=== PATIENT | male | born 1955 | race Caucasian/White ===

== ENCOUNTER 2018-01-04 07:18 | Day surgery (SDC) | payer BC ==
[2017-12-28 12:05] VITALS: BMI 34.4
[~2018-01-04 07:18] MED LIST: LACTATED RINGERS 1,000 ML IV SCH; LIDOCAINE 1% 20 ML VIAL (10MG/ML) FOR IV START INTRADERMA PRN; MIDAZOLAM 2 MG/2 ML VIAL IV PRN
[2018-01-04] MEDS: PHENYLEPHRINE 10% OPHTH DROPS 5 ML BTL OP ONE ×3 (07:50→07:56)
[2018-01-04] MEDS: CYCLOPENTOLATE 1% OPHTH SOLN 2 ML BTL OP ONE ×3 (07:59→08:05)
[2018-01-04 08:08] VITALS: RESP 16; TEMP 98.1
[2018-01-04] MEDS: FLURBIPROFEN 0.03% OPHTH DROPS 2.5 ML BTL OP ONE ×3 (08:08→08:14)
[2018-01-04 08:10] LABS: Glucose,Whole Blood 165 mg/dL (75-99)
[2018-01-04] MEDS ORDERED: PROPOFOL 10 MG/ML 20 ML VIAL IV ONE (08:41)
[2018-01-04] MEDS ORDERED: EPINEPHrine (PF) 0.5 ML in BALANCED SALT IRRIG SOLN COMB2 500 ML IRRIGATION ONE (08:50)
[2018-01-04] MEDS ORDERED: BALANCED SALT IRRIG SOLN COMB2 15 ML IRRIG.SOLN IRRIGATION ONE (08:51)
[2018-01-04] MEDS ORDERED: HYALURONATE SODIUM INTRAOCULAR 1 EACH SYRINGE (10MG/ML) INTRAOCULA ONE (08:51)
--- NOTE | 2018-01-04 09:03 | P.OP ---
Date of Procedure: 01/04/18 Procedure(s) Performed: PREOPERATIVE DIAGNOSIS: Cataract, left eye. POSTOPERATIVE DIAGNOSIS: Cataract, left eye. OPERATION: Phacoemulsification cataract, left eye. DESCRIPTION OF PROCEDURE: The patient was taken to the preoperative holding area. Intravenous Propofol was given so as to bring about adequate sedation. The following mixture was given for local anesthesia: 5 mL of 2% lidocaine, 5 mL of 0.75% Marcaine, and 1 mL of Wydase. Approximately 4 mL was injected in the retrobulbar space of the surgical eye. Additional 1 mL was then directed to the temporal area of the surgical eye. This was performed to allow adequate neurological block of the facial muscles. The patient was revived and then taken into the operative room. The patient was prepped and draped in the usual sterile manner for the operative eye. A lid speculum was put into position. The conjunctiva was resected back from the limbus in the 12 o'clock position. Bleeding was controlled with electrocautery. A #69 blade was then used and a half-thickness scleral incision approximately 1-mm posterior to the limbus was made on bare sclera. This was shelved in the clear cornea using a crescent knife. Next a 15-degree blade was used to make a stab incision at the 3 o' clock position at the corneolimbal interface. Keratome blade was then used and the superior wound was extended into the anterior chamber. Viscoelastic was injected into the anterior chamber and to maintain its form. Next, a cystotome was used and a continuous anterior capsulotomy was made without difficulty. Hydrodissection using a blunt cannula and BSS was performed. Phaco probe was then employed and a groove extending from 12 to 6 o'clock in the lens was created. A Chris wand was used through the stab incision so as to perform a divide and conquer technique. Next an irrigation aspiration probe was utilized and any residual cortex was removed from the eye. Again, viscoelastic was injected into the anterior chamber. An Kasi posterior chamber lens implant was placed in the cartridge and injected into the anterior chamber without difficulty. The SinDailyWorthey hook was utilized to spin the lens into position and this was again performed without any difficulty. The irrigation and aspiration probe was again employed and any residual viscoelastic was removed from the eye. Then BSS was injected into the limbal stab incision and the anterior chamber re-inflated. The conjunctiva was reapproximated using electrocautery. One drop of 0.25% Timoptic was placed over the corneal along with TobraDex ophthalmic ointment. Two sterile patches and a Freire eye shield were taped into position. The patient was transported to the recovery room in stable condition. Pathology: none sent Condition: stable Disposition: same day
[2018-01-04 09:32] VITALS: BP 146/87; PULSE 62
[2018-01-04] MEDS ORDERED: TIMOLOL 0.5% OPHTH DROPS 5 ML BTL OP ONE (23:00)
[2018-01-04] MEDS ORDERED: BUPIVACAINE (PF) 0.75% 5 ML, HYALURONIDASE, HUMAN RECOMB 150 UNIT, LIDOCAINE 2% (PF) 10... MISCELLANE ONE ×3 (23:00)
[2018-01-04] MEDS ORDERED: GENTAMICIN/PREDNISOL AC OPHTH OINT 3.5GM OPHTHALMIC ONE (23:00)
== END 2018-01-04 09:37 | disposition home or self-care (01) ==
LOC: OR 07:18
PROVIDERS: ATTEND Ophthalmology
DX: H25.042 Posterior subcapsular polar age-related cataract, left eye (principal); E11.9 Type 2 diabetes mellitus without complications; I10 Essential (primary) hypertension; E78.5 Hyperlipidemia, unspecified; I95.1 Orthostatic hypotension; K21.9 Gastro-esophageal reflux disease without esophagitis; Z79.84 Long term (current) use of oral hypoglycemic drugs; Z79.82 Long term (current) use of aspirin; Z79.899 Other long term (current) drug therapy; Z87.891 Personal history of nicotine dependence; Z98.1 Arthrodesis status
CPT/HCPCS: 66984; V2632; J3470; J2001; J0171; J2704

== ENCOUNTER 2021-06-02 11:25 | Emergency (ER) | payer BC ==
[2021-06-02 11:58] VITALS: TEMP 98.8
[2021-06-02] MEDS ORDERED: SODIUM CHLORIDE 0.9% 1,000 ML IV STA (12:55)
--- NOTE | 2021-06-02 12:58 | ED ---
General Adult HPI - General Chief complaint: Syncope Stated complaint: syncope Time Seen by Provider: 06/02/21 12:45 Source: patient, family, RN notes reviewed Mode of arrival: ambulatory Limitations: no limitations - History of Present Illness Initial comments: Patient is a pleasant 65-year-old male presenting to the emergency department on a syncopal episode. Episode occurred yesterday. Patient was showering when he felt short of breath. Patient turned off the water to get out however has helped. Patient believes he did strike his head. Patient has mild headache since the incident. Patient also has some mild associated nausea. No chest pa in. No weakness or confusion. No history of similar symptoms previously. No dyspnea since just prior to the syncopal episode. - Related Data Home Medications Medication Instructions Recorded Confirmed Aspirin [Adult Low Dose Aspirin EC] 81 mg PO DAILY 12/28/17 06/02/21 Omeprazole [PriLOSEC] 20 mg PO DAILY 12/28/17 06/02/21 metFORMIN HCL [Glucophage] 1,000 mg PO BID 12/28/17 06/02/21 Atorvastatin Calcium [Lipitor] 40 mg PO DAILY 06/02/21 06/02/21 Dulaglutide [Trulicity] 1.5 mg SQ MO 06/02/21 06/02/21 Sildenafil [Revatio] 60 - 100 mg PO DAILY PRN 06/02/21 06/02/21 lisinopriL 10 mg PO HS 06/02/21 06/02/21 Previous Rx's Medication Instructions Recorded Azithromycin [Zithromax Z-pack (6 250 mg PO DIRECTED #6 tab 06/02/21 tabs)] Allergies Allergy/AdvReac Type Severity Reaction Status Date / Time No Known Allergies Allergy Verified 06/02/21 14:36 Review of Systems ROS Statement: Those systems with pertinent positive or pertinent negative responses have been documented in the HPI. ROS Other: All systems not noted in ROS Statement are negative. Constitutional: Denies: fever Eyes: Denies: eye pain ENT: Denies: ear pain Respiratory: Reports: as per HPI Cardiovascular: Denies: chest pain Endocrine: Denies: fatigue Gastrointestinal: Reports: nausea. Denies: abdominal pain Genitourinary: Denies: dysuria Musculoskeletal: Denies: back pain Skin: Denies: rash Neurological: Reports: as per HPI, headache. Denies: weakness, confusion Past Medical History Past Medical History: Diabetes Mellitus, GERD/Reflux, Hyperlipidemia, Hypertension Additional Past Medical History / Comment(s): dizziness when getting up to quick, History of Any Multi-Drug Resistant Organisms: None Reported Past Surgical History: Back Surgery, Ear Surgery, Heart Catheterization Additional Past Surgical History / Comment(s): reconstruction left ear, cervical fusion with titanium plate, , Past Anesthesia/Blood Transfusion Reactions: No Reported Reaction Past Psychological History: No Psychological Hx Reported Smoking Status: Never smoker Past Alcohol Use History: Rare Past Drug Use History: None Reported - Past Family History Father Family Medical History: Cancer General Exam Limitations: no limitations General appearance: alert, in no apparent distress Head exam: Present: other (Minimal contusion left frontal) Eye exam: Present: normal appearance, PERRL, EOMI. Absent: nystagmus ENT exam: Present: normal oropharynx Neck exam: Present: normal inspection. Absent: tenderness Respiratory exam: Present: normal lung sounds bilaterally Cardiovascular Exam: Present: regular rate, normal rhythm Expanded Peripheral pulses: 2+: Radial (R), Radial (L), Dorsalis Pedis (R), Dorsalis Pedis (L) GI/Abdominal exam: Present: soft. Absent: tenderness Extremities exam: Present: normal inspection, full ROM. Absent: tenderness Neurological exam: Present: alert, oriented X3, CN II-XII intact. Absent: motor sensory deficit Expanded Neurological exam: Present: protecting the airway Speech: Present: fluid speech Cranial nerves: EOM's Intact: Normal Motor strength exam: RUE: 5, LUE: 5, RLE: 5, LLE: 5 Eye Response: (4) open spontaneously Motor Response: (6) obeys commands Verbal Response: (5) oriented Psychiatric exam: Present: normal affect, normal mood Skin exam: Present: normal color Course Vital Signs 06/02/21 06/02/21 06/02/21 11:55 11:58 13:58 Temperature 98.8 F Pulse Rate 76 95 86 Respiratory 19 18 18 Rate Blood Pressure 121/73 131/95 125/75 O2 Sat by Pulse 94 L 96 95 Oximetry 06/02/21 15:58 Temperature Pulse Rate 80 Respiratory 18 Rate Blood Pressure 132/81 O2 Sat by Pulse 96 Oximetry EKG Findings - EKG Comments: EKG Findings:: Normal sinus rhythm with a rate of 77. FL 174. QRS 118. QT 396 . QTc 440. Left axis. Left anterior fascicular block. LVH criteria. No acute ST change. Medical Decision Making - Medical Decision Making Patient reevaluated and updated. Patient offered admission however refuses and would like to go home. Patient offered COVID-19 testing however also refuses. Patient will be covered with antibiotics. Case was earlier discussed with Dr. Webb who was comfortable with discharge of patient felt well however otherwise was agreeable with admission. Discussion was had with patient regarding need for care with driving and operating machinery and further restrictions to be discussed with primary care physician. - Lab Data Result diagrams: 06/02/21 14:13 06/02/21 14:13 Lab Results 06/02/21 06/02/21 06/02/21 Range/Units 13:57 14:13 14:13 WBC 10.0 (3.8-10.6) k/uL RBC 4.63 (4.30-5.90) m/uL Hgb 14.4 (13.0-17.5) gm/dL Hct 42.2 (39.0-53.0) % MCV 91.1 (80.0-100.0) fL MCH 31.2 (25.0-35.0) pg MCHC 34.2 (31.0-37.0) g/dL RDW 13.6 (11.5-15.5) % Plt Count 213 (150-450) k/uL MPV 8.1 Neutrophils % 83 % Lymphocytes % 8 % Monocytes % 6 % Eosinophils % 2 % Basophils % 0 % Neutrophils # 8.3 H (1.3-7.7) k/uL Lymphocytes # 0.8 L (1.0-4.8) k/uL Monocytes # 0.6 (0-1.0) k/uL Eosinophils # 0.2 (0-0.7) k/uL Basophils # 0.0 (0-0.2) k/uL PT 10.1 (9.0-12.0) sec INR 0.9 (<1.2) APTT 23.5 (22.0-30.0) sec D-Dimer 0.63 H (<0.60) mg/L FEU Sodium (137-145) mmol/L Potassium (3.5-5.1) mmol/L Chloride (98-107) mmol/L Carbon Dioxide (22-30) mmol/L Anion Gap mmol/L BUN (9-20) mg/dL Creatinine (0.66-1.25) mg/dL Est GFR (CKD-EPI)AfAm (>60 ml/min/1.73 sqM) Est GFR (CKD-EPI)NonAf (>60 ml/min/1.73 sqM) Glucose (74-99) mg/dL Calcium (8.4-10.2) mg/dL Magnesium (1.6-2.3) mg/dL Total Bilirubin (0.2-1.3) mg/dL AST (17-59) U/L ALT (4-49) U/L Alkaline Phosphatase (38-126) U/L Troponin I (0.000-0.034) ng/mL Total Protein (6.3-8.2) g/dL Albumin (3.5-5.0) g/dL Urine Color Yellow Urine Appearance Cloudy (Clear) Urine pH 5.5 (5.0-8.0) Ur Specific [place] 1.025 (1.001-1.035) Urine Protein 2+ H (Negative) Urine Glucose (UA) Negative (Negative) Urine Ketones Trace H (Negative) Urine Blood Large H (Negative) Urine Nitrite Positive (Negative) Urine Bilirubin Negative (Negative) Urine Urobilinogen 2.0 (<2.0) mg/dL Ur Leukocyte Esterase Large H (Negative) Urine RBC 12 H (0-5) /hpf Urine WBC 86 H (0-5) /hpf Urine WBC Clumps Occasional H (None) /hpf Urine Bacteria Many H (None) /hpf Hyaline Casts 34 H (0-2) /lpf Urine Mucus Many H (None) /hpf 06/02/21 06/02/21 Range/Units 14:13 14:13 WBC (3.8-10.6) k/uL RBC (4.30-5.90) m/uL Hgb (13.0-17.5) gm/dL Hct (39.0-53.0) % MCV (80.0-100.0) fL MCH (25.0-35.0) pg MCHC (31.0-37.0) g/dL RDW (11.5-15.5) % Plt Count (150-450) k/uL MPV Neutrophils % % Lymphocytes % % Monocytes % % Eosinophils % % Basophils % % Neutrophils # (1.3-7.7) k/uL Lymphocytes # (1.0-4.8) k/uL Monocytes # (0-1.0) k/uL Eosinophils # (0-0.7) k/uL Basophils # (0-0.2) k/uL PT (9.0-12.0) sec INR (<1.2) APTT (22.0-30.0) sec D-Dimer (<0.60) mg/L FEU Sodium 138 (137-145) mmol/L Potassium 3.7 (3.5-5.1) mmol/L Chloride 99 (98-107) mmol/L Carbon Dioxide 25 (22-30) mmol/L Anion Gap 14 mmol/L BUN 26 H (9-20) mg/dL Creatinine 1.07 (0.66-1.25) mg/dL Est GFR (CKD-EPI)AfAm 85 (>60 ml/min/1.73 sqM) Est GFR (CKD-EPI)NonAf 74 (>60 ml/min/1.73 sqM) Glucose 128 H (74-99) mg/dL Calcium 9.2 (8.4-10.2) mg/dL Magnesium 1.7 (1.6-2.3) mg/dL Total Bilirubin 1.0 (0.2-1.3) mg/dL AST 38 (17-59) U/L ALT 26 (4-49) U/L Alkaline Phosphatase 101 (38-126) U/L Troponin I <0.012 (0.000-0.034) ng/mL Total Protein 7.4 (6.3-8.2) g/dL Albumin 4.0 (3.5-5.0) g/dL Urine Color Urine Appearance (Clear) Urine pH (5.0-8.0) Ur Specific [place] (1.001-1.035) Urine Protein (Negative) Urine Glucose (UA) (Negative) Urine Ketones (Negative) Urine Blood (Negative) Urine Nitrite (Negative) Urine Bilirubin (Negative) Urine Urobilinogen (<2.0) mg/dL Ur Leukocyte Esterase (Negative) Urine RBC (0-5) /hpf Urine WBC (0-5) /hpf Urine WBC Clumps (None) /hpf Urine Bacteria (None) /hpf Hyaline Casts (0-2) /lpf Urine Mucus (None) /hpf - Radiology Data Radiology results: report reviewed (Computed tomography scan the brain shows atrophy. Right maxillary sinusitis. CT chest negative for pulmonary embolism. Right lower lobe infiltrate.), image reviewed (Chest x-ray concerning for atelectasis favored over infiltrate.) Disposition Clinical Impression: Pneumonia, Syncope Disposition: HOME SELF-CARE Condition: Stable Instructions (If sedation given, give patient instructions): Bacterial Pneumonia (ED), Syncope (ED) Additional Instructions: Prescription has been sent to pharmacy. Please follow-up with primary care physician in the next day or 2 for recheck. Return for difficulty breathing, weakness, passing out, chest pain, worsening symptoms or other concerns. Prescriptions: Azithromycin [Zithromax Z-pack (6 tabs)] 250 mg PO DIRECTED #6 tab Is patient prescribed a controlled substance at d/c from ED?: No Referrals: Carlos Bhat DO [Primary Care Provider] - 1-2 days Time of Disposition: 17:16
--- NOTE | 2021-06-02 13:34 | CT ---
EXAMINATION TYPE: CT brain wo con DATE OF EXAM: 06/02/2021 HISTORY: Syncope CT DLP: 1074.4 mGycm. Automated Exposure Control for Dose Reduction was Utilized. TECHNIQUE: CT scan of the head is performed without contrast. COMPARISON: None. FINDINGS: There is no acute intracranial hemorrhage or midline shift identified. There is mild diff use ventricular and sulcal prominence consistent with diffuse age-related cerebral atrophy. There is mild to moderate low-attenuation in the deep and periventricular white matter consistent with chroni c small vessel ischemic change. Air-fluid level in the right maxillary sinus. Remainder visualized pa ranasal sinuses are clear. Left mastoid surgical change noted. Mild to moderate vascular calcificatio n distal internal carotid arteries bilaterally. Nasal septum deviated to right of midline. IMPRESSION: No acute intracranial hemorrhage or midline shift. There is mild diffuse age-related ce rebral atrophy and mild to moderate chronic small vessel ischemic change noted. Left mastoid surgical change noted. Right maxillary acute sinusitis noted.
--- NOTE | 2021-06-02 13:35 | XR ---
EXAMINATION TYPE: XR chest 2V DATE OF EXAM: 06/02/2021 COMPARISON: NONE TECHNIQUE: PA and lateral views submitted. HISTORY: Syncope FINDINGS: The lungs are clear and there is no pneumothorax, pleural effusion, or focal pneumonia. Heart size normal. Hypertrophic and degenerative change spine. Hyperinflation suggests COPD. Arthropathy of the shoulders. Postsurgical change involving the cervical spine. Linear changes at the lung base. IMPRESSION: 1. PD basilar atelectasis favored over infiltrate correlate clinically..
[2021-06-02 14:21] LABS: Appearance,Urine Cloudy (Clear); Bacteria,Urine Many /hpf; Bilirubin,Urine Negative (Negative); Blood,Urine Large (Negative); Color,Urine Yellow; Glucose,Urine (UA) Negative (Negative); Hyaline Casts,Urine 34 /lpf (0-2); Ketones,Urine Trace (Negative); Leukocyte Esterase,Urine Large (Negative); Mucus,Urine Many /hpf; Nitrite,Urine Positive (Negative); PH, Urine 5.5 (5.0-8.0); Protein,Urine 2+ (Negative); RBC,Urine 12 /hpf (0-5); Specific Gravity,Urine 1.025 (1.001-1.035); WBC,Urine 86 /hpf (0-5)
[2021-06-02 14:31] LABS: Basophils % (A) 0 %; Eosinophils # (A) 0.2 k/uL (0-0.7); Eosinophils % (A) 2 %; HCT 42.2 % (39.0-53.0); HGB 14.4 gm/dL (13.0-17.5); Lymphocytes # (A) 0.8 k/uL (1.0-4.8); Lymphocytes % (A) 8 %; MCH 31.2 pg (25.0-35.0); MCHC 34.2 g/dL (31.0-37.0); MCV 91.1 fL (80.0-100.0); Mean Platelet Volume 8.1; Monocytes # (A) 0.6 k/uL (0-1.0); Monocytes % (A) 6 %; Neutrophils # (A) 8.3 k/uL (1.3-7.7); Neutrophils % (A) 83 %; Platelet Count 213 k/uL (150-450); RBC 4.63 m/uL (4.30-5.90); RDW 13.6 % (11.5-15.5)
[2021-06-02 14:46] LABS: INR 0.9 (<1.2); Partial Thromboplastin Time 23.5 sec (22.0-30.0); Prothrombin Time 10.1 sec (9.0-12.0)
[2021-06-02 14:51] LABS: Calcium 9.2 mg/dL (8.4-10.2); Magnesium 1.7 mg/dL (1.6-2.3); Potassium 3.7 mmol/L (3.5-5.1); Total Protein 7.4 g/dL (6.3-8.2)
[2021-06-02 16:52] VITALS: PULSE 80; RESP 18
--- NOTE | 2021-06-02 16:57 | CT ---
EXAMINATION TYPE: CT angio chest DATE OF EXAM: 06/02/2021 COMPARISON: None HISTORY: Elevated d-dimer and syncope. CT DLP: 429.4 mGycm Automated exposure control for dose reduction was used. CONTRAST: Performed with IV Contrast, patient injected with 71ml mL of Isovue 370. There is some airspace consolidation in the right lower lobe posteriorly. The other lung caceres are c lear. There is no pleural effusion. There is no pericardial effusion. Heart size is normal. Ascending aorta measures 3.4 cm. There is no aneurysm or dissection. There is normal contrast opacification of the pulmonary arteries. There are no filling defects. There is no mediastinal adenopathy. There are no hilar masses. There is some spurring in the thoracic spin e. There is no compression fracture. Sternum is intact. IMPRESSION: Right lower lobe pneumonia. No evidence of pulmonary embolism.
[2021-06-02] MEDS ORDERED: cefTRIAXone IN SWFI 1,000 MG/10 ML SYRINGE IVP STA (17:17)
[2021-06-02] MEDS ORDERED: AZITHROMYCIN 500 MG TAB PO STA (17:17)
[2021-06-02 17:47] VITALS: BP 158/96
== END 2021-06-02 17:47 | disposition home or self-care (01) ==
LOC: EC 11:25
DX: J18.9 Pneumonia, unspecified organism (principal); R55 Syncope and collapse; R51.9 Headache, unspecified; I10 Essential (primary) hypertension; E11.9 Type 2 diabetes mellitus without complications; E78.5 Hyperlipidemia, unspecified; K21.9 Gastro-esophageal reflux disease without esophagitis; Z79.84 Long term (current) use of oral hypoglycemic drugs; Z79.899 Other long term (current) drug therapy
CPT/HCPCS: 36415; 93005; 85379; 80053; 83735; 84484; 85025; 85610; 85730; 81001; 87086; 71046; 70450; 71275; 99284; 96374; 96361; J0696; Q9967

== ENCOUNTER → 2022-06-10 | Outpatient (CLI) | payer OTHER ==
--- NOTE | 2022-06-10 21:13 | MR ---
EXAMINATION TYPE: MR lumbar spine wo con DATE OF EXAM: 06/10/2022 8:23 PM COMPARISON: None. CLINICAL INDICATION:Male, 66 years old with history of S33.5XXA SPRAIN OF LIGAMENTS OF LUMBAR SPINE; pain radiates down right leg. TECHNIQUE: Multi planar, multi sequence imaging was performed utilizing: T1-weighted, T2-weighted, a nd turbo inversion recovery imaging of the lumbar spine. IV Contrast: None FINDINGS: Alignment: The lumbar vertebral bodies have preserved heights and alignment. Cord: The conus medullaris and the distal spinal cord appear unremarkable with regards to their signa l intensity and morphology. Bones/Discs: Multilevel disc degeneration changes with osteophyte formation most pronounced at L1-L2 adjoining endplates disc desiccation is mild throughout the spine. Probable L4 vertebral body hemangi samuel. L1-L2: No significant disc pathology. Spinal canal is patent. Facet joint arthropathy with mild to mo derate neural foraminal stenosis. L2-L3: No significant disc pathology. Spinal canal is patent. Facet joint arthropathy with mild to mo derate bilateral neural foraminal stenosis L3-L4: No significant disc pathology. Spinal canal is patent. Facet joint arthropathy with moderate b ilateral neural foraminal stenosis L4-L5: Disc bulging and facet joint arthropathy with moderate left and mild right neural foraminal st enosis. The spinal canal seen. L5-S1: Disc bulging without significant spinal canal stenosis. Facet joint arthropathy with mild to m oderate bilateral neural foraminal stenosis. Other findings: Atherosclerosis of the arterial vasculature. IMPRESSION: 1. L3-L4 moderate bilateral neural foraminal stenosis secondary to facet joint arthropathy. 2. No evidence of significant spinal canal stenosis.
== END | disposition home or self-care (01) ==
LOC: RADMRIMAIN 19:01
PROVIDERS: ATTEND Family Medicine
DX: S33.5XXA Sprain of ligaments of lumbar spine, initial encounter (principal); X58.XXXA Exposure to other specified factors, initial encounter
CPT/HCPCS: 72148

== ENCOUNTER → 2024-02-03 | Outpatient (CLI) | payer BC ==
--- NOTE | 2024-02-03 11:57 | MR ---
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 COMPARISON: 06/10/2022 TECHNIQUE: Multi planar, multi sequence imaging was performed utilizing: T1-weighted, T2-weighted, a nd turbo inversion recovery imaging of the lumbar spine. IV Contrast: cc . (None if empty) FINDINGS: Alignment: The lumbar vertebral bodies have preserved heights and alignment. Cord: The conus medullaris and the distal spinal cord appear unremarkable with regards to their signa l intensity and morphology. Bones/Discs: Mild degeneration changes throughout the spine with osteophyte formation and facet joint arthropathy. Multilevel disc desiccation is present. T12-L1: No evidence of significant spinal canal stenosis or neural foraminal stenosis. L1-L2: No evidence of significant spinal canal stenosis or neural foraminal stenosis. L2-L3: Disc bulge and facet joint arthropathy result in mild spinal canal and moderate bilateral neur al foraminal stenosis. L3-L4: Disc bulge and facet joint arthropathy result in mild spinal canal and moderate bilateral neur al foraminal stenosis. L4-L5: Disc bulge and facet joint arthropathy result in mild spinal canal and moderate bilateral neur al foraminal stenosis. L5-S1: The disc has a rounded posterior morphology without significant spinal canal stenosis. Facet j oint arthropathy with moderate to severe right and moderate left. Facet joint abuts the exiting nerve series 301 image 12. Neural foraminal stenosis. No significant spinal canal or neural foraminal stenosis in the remainder of the visualized levels. Other findings: None. IMPRESSION: 1. No definitive evidence of disc herniation or significant spinal canal stenosis. 2. Mild to moderate disc degeneration with associated osteoarthritic changes. No foraminal stenosis worse on the right L5-S1 with moderate to severe.
== END | disposition home or self-care (01) ==
LOC: RADMRIMAIN 09:06
PROVIDERS: ATTEND Family Medicine
DX: M47.26 Other spondylosis with radiculopathy, lumbar region (principal); M51.16 Intervertebral disc disorders with radiculopathy, lumbar region; M16.11 Unilateral primary osteoarthritis, right hip
CPT/HCPCS: 72148

== ENCOUNTER → 2024-03-29 | Outpatient (CLI) | payer BC ==
[2024-03-29 09:26] VITALS: BP 132/74; PULSE 65; RESP 16; TEMP 97.6
--- NOTE | 2024-03-29 13:57 | P.PAINPG ---
PQRS Measure Charge Sheet Comment: HISTORY OF PRESENT ILLNESS: A 68 yr old male w at side as a referral from Dr Davenport presents today w severe and chronic LBP> 3 mo secondary to DDD, spondylosis and facet arthropathy without myelopathy for evaluation. Pt states pain level is provoked at 9 /10 in intensity, intermittent, localized in the lower lumbar spine, predominantly axial, sharp in character w occasional shooting pain towards the R buttock and RLE. Pain is provoked by bending, lifting. Pain is alleviated by PT x 6 wks which ended in 2018, physician guided home exercises 4 times weekly since 2019, medications (ASA, Tramadol, Neurontin), heat, repositioning and rest . Oswestry axial pain score at 26. PMH: OA, IDDM II, GERD, Hyperlipidemia, HTN PSH: L Cataract Extraction (2018), Cervical Fusion w Titanium Plate, Ear Surgery, Cardiac Catheterization SH: Never smoker, Rare ETOH use, No illicit drug use FH: Fa- CA All: See list Meds: See list REVIEW OF ORGAN SYSTEMS: CONSTITUTIONAL: No fevers or chills. No recent weight loss. NEUROLOGICAL: + numbness and tingling along the distal extremities. No seizure disorders or headaches. MUSCULOSKELETAL: + pain PSYCHIATRIC: Denies current depression or suicidal thoughts. Physical Examinations : Constitutional : Cooperative , not in acute distress . Neurologic : Cranial nerve II to XII intact. No focal neurological deficits. Psychiatric : alert & oriented x 3. Matching mood & appropriate affect. Judgment & insight intact. Musculoskeletal : Cervical Spine Motor strength in the deltoid and biceps: Normal right side. Normal Left side Motor strength biceps and the wrist extensors: Normal right side . Normal left side Motor strength in the triceps muscle: Normal right side. Normal left side Deep tendon reflexes: Normal at the biceps. Normal at Brachioradialis. Normal at triceps Vertebral body tenderness to deep palpation over Cervical facet loading test: positive bilaterally Spurling test: positive bilaterally Neck distraction test: positive bilaterally Curtis sign: positive bilaterally Lumbar spine Motor strength lower extremities ,thigh and legs 5/5 Right side , 5/5 Left side Deep tendon reflexes : Normal Knee Jerk. Normal Ankle Jerk Vertebral body tenderness over L5 Baldwin Test positive R L5-S1 Lumbar facet Loading Test: positive Ri ght / positive Left Range of motion of the lumbar spine Flexion 30 degrees, extension 10 degrees Straight Leg Raise test: Left/ Right positive at degrees Hiram test: positive right / positive left. Severe tenderness over the Sacroiliac joint on the Right / Left sides Gaenslen test: positive bilaterally Seated flexion test: positive bilaterally. Sacral spine : Severe tenderness over the Sacroiliac joint: right side / left side Range of motion: Flexion of the lumbar spine <60 degrees Range of motion: Extension of the lumbar spine <20 degrees Gaenslen's Test positive Hiram test: positive right side / left side Thigh Thrust Test Sacral Thrust Test Imaging: MRI non contrast of the lumbar spine from reviewed Assessment/ Plan : L3-L5 mild spinal stenosis, Lumbar DDD Recommendation of R TFESI L5-S1 #1. May need a series of injections for optimal pain relief. Risks, benefits of procedure discussed and patient verbalized understanding. Admits to anti- coagulant use or medical history of diabetes. Pr otocol for discontinuation/ continuation of medications vianca procedure discussed. All questions answered. I have spent greater than 30 minutes on patient care today. Dr Mendoza was available by phone for the evaluation of this patient. The time was used to review the medical records including relevant urine studies and Prescription history (MAPs), review of the available imaging, evaluation and examination of the patient, coordination of care with the medical staff and if applicable referring physicians, as well as creation of the medical record - Pain Location Lower Back Pharmacological Interventions: PRN Medication PQRS Narrative: Smoking Status Former smoker Home Medications: Ambulatory Orders Aspirin [Adult Low Dose Aspirin EC] 81 mg PO DAILY 12/28/17 Omeprazole [PriLOSEC] 20 mg PO DAILY 12/28/17 metFORMIN HCL [Glucophage] 1,000 mg PO BID 12/28/17 Atorvastatin Calcium [Lipitor] 40 mg PO DAILY 06/02/21 Azithromycin [Zithromax Z-pack (6 tabs)] 250 mg PO DIRECTED #6 tab 06/02/21 Dulaglutide [Trulicity] 1.5 mg SQ MO 06/02/21 Sildenafil [Revatio] 60 - 100 mg PO DAILY PRN 06/02/21 lisinopriL [Prinivil] 10 mg PO HS 06/02/21 Controlled Substance Measures - Controlled Substance Measures Is patient prescribed a controlled substance at discharge?: Yes When asked, does pt state using other controlled substances?: Yes If prescribed controlled substance>3 days was MAPS reviewed?: Prescribed <3 Days
== END ==
LOC: PNWHC3 09:02
PROVIDERS: ATTEND Specialist
DX: M99.63 Osseous and subluxation stenosis of intervertebral foramina of lumbar region (principal); M46.96 Unspecified inflammatory spondylopathy, lumbar region; M51.17 Intervertebral disc disorders with radiculopathy, lumbosacral region; M48.061 Spinal stenosis, lumbar region without neurogenic claudication; Z87.891 Personal history of nicotine dependence
CPT/HCPCS: 99211

== ENCOUNTER 2024-04-11 12:44 | Day surgery (SDC) | payer BC ==
[~2024-04-11 12:44] MED LIST changes: -LIDOCAINE 1% 20 ML VIAL (10MG/ML) FOR IV START INTRADERMA PRN; -MIDAZOLAM 2 MG/2 ML VIAL IV PRN
[2024-04-11 13:12] VITALS: TEMP 97.3
[2024-04-11 13:24] LABS: Glucose,Whole Blood 147 mg/dL (70-110)
[2024-04-11] MEDS ORDERED: IOPAMIDOL M200 10 ML VIAL ONE (14:05)
[2024-04-11] MEDS ORDERED: DEXAMETHASONE SOD PHOSPHATE 10 MG/ML 1 ML VIAL ONE (14:05)
--- NOTE | 2024-04-11 14:10 | P.PCN ---
Date of Procedure: 04/11/24 Description of Procedure: PREOPERATIVE DIAGNOSIS: Lumbar radiculopathy POSTOPERATIVE DIAGNOSIS: Lumbar radiculopathy PROCEDURE 1. Transforaminal epidural steroid injection under fluoroscopic guidance RIGHT 01/18 2. Lumbar epidurogram IMAGING Fluoroscopy was used, images where saved to the medical record ANESTHESIA: Patient re-evaluated immediately prior to sedation local only EBL: Minimal PROCEDURE DESCRIPTION / TECHNIQUE: The patient was seen and identified in the preoperative area. Risks, benefits, complications, and alternatives were discussed with the patient. The patient agreed to proceed with the procedure and signed the consent, vital signs were stable prior to the procedure. Patient was taken to the OR and time out was completed. The patient was placed in the prone position on procedure table and a pillow was placed under the abdomen to reduce lumbar lordosis. The lumbosacral area was prepped and draped in the usual sterile fashion. Vital signs were closely monitored during the procedure. Conscious sedation was used. Using oblique fluoroscopy, the chin of the "Rm dog" at the pedicle and the skin and deeper tissues just below was localized with 1% lidocaine. Subsequently, a 22-gauge 5-inch spinal needle was advanced under a tunneled view fluoroscopic guidance just underneath the chin of the "Rm dog". Under lateral fluoroscopy, the needle was then advanced to the posterior border interforaminal space. After negative aspiration of CSF and blood and with no paresthesias, 1 mL of Omnipaque-240 contrast dye was injected excellent epidurogram. Subsequently, a solution totalling 2ml of dexamethasone and 1CC of 1% lidocaine was injected after negative aspiration (total of 10mg of dexamethasone was used). The needle was removed intact. COMPLICATIONS: None DISPOSITION: The patient was placed in a supine position and transferred to the recovery area in a stable condition for observation. There was no evidence of lower extremity motor or sensory deficit after the procedure. Patient was discharged from the recovery room after meeting discharge criteria. Home discharge instructions were given to the patient by the staff. The patient was reexamined prior to discharge. Follow up as directed.
--- NOTE | 2024-04-11 14:25 | FL ---
Fluoroscopy History: M54.16 LUMBAR RADICULOPATHY Right transforaminal epidural steroid injection 5 sec fl .[id number] DAP
[2024-04-11 14:37] VITALS: BP 133/77; PULSE 63; RESP 16
== END 2024-04-11 14:50 | disposition home or self-care (01) ==
LOC: ORPAIN 12:44
PROVIDERS: ATTEND Hospitalist
DX: M54.16 Radiculopathy, lumbar region (principal); E11.9 Type 2 diabetes mellitus without complications; Z79.82 Long term (current) use of aspirin
CPT/HCPCS: 64483; J1100; Q9966

== ENCOUNTER → 2024-04-26 | Outpatient (CLI) | payer BC | LOC: PNWHC3 09:52 | DX: M54.16 Radiculopathy, lumbar region | CPT/HCPCS: 99211 ==

== ENCOUNTER 2024-05-11 09:57 | Day surgery (SDC) | payer BC ==
[2024-05-11] MEDS ORDERED: methylPREDNISolone ACETATE 80 MG/ML 1 ML VIAL ONE (12:34)
[2024-05-11] MEDS ORDERED: ROPIVACAINE 5MG/ML 20ML VIAL ONE (12:34)
--- NOTE | 2024-06-20 18:20 | FL ---
EXAMINATION TYPE: FL guided pain mgmt statistic DATE OF EXAM: 05/18/2024 3:35 PM COMPARISON: Pre Operative Images if available both CT/MRI or plain film CLINICAL INDICATION: Male, 68 years old with history of RIGHT GREATER TROCHANTER INJ; TECHNIQUE: FL guided pain mgmt statistic, multiple fluoroscopic images provided for procedure. Total fluoroscopy time: 10 seconds Total submitted images to PACS: 1 DAP: 0.47332 mGym2 Gycm2 uGym2 cGycm2 or equivalent. FINDINGS: IMPRESSION: 1. No evidence for intraoperative complication. 2. Please see the operative/procedural note for further details. [facility], , 06/20/2024 6:17 PM
== END 2024-05-11 13:34 ==
LOC: ORPAIN 09:57
PROVIDERS: ATTEND Pain Medicine Interventional Pain Medicine
DX: M70.61 Trochanteric bursitis, right hip (principal); E11.9 Type 2 diabetes mellitus without complications; I10 Essential (primary) hypertension; Z79.82 Long term (current) use of aspirin; Z79.84 Long term (current) use of oral hypoglycemic drugs; Z79.899 Other long term (current) drug therapy
CPT/HCPCS: 20610

== ENCOUNTER → 2024-07-19 | Outpatient (CLI) | payer BC ==
[2024-07-19 09:10] VITALS: BP 124/82; PULSE 80; RESP 16; TEMP 97.1
--- NOTE | 2024-07-19 14:33 | P.PAINPG ---
PQRS Measure Charge Sheet Comment: HISTORY OF PRESENT ILLNESS: A 68 yr old male w at side presents today w severe and chronic LBP> 3 mo secondary to radiculopathy, spondylosis and facet arthropathy without myelopathy for evaluation s/p R Greater Trochanteric Injection #1. Pt states he experienced >50 % pain relief x 2 mo s/p procedure. Pt states pain level is provoked at 6 /10 in intensity, intermittent, localized in the R lower lumbar spine, predominantly axial, sharp in character w occasional shooting pain towards the R groin and RLE. Pain is provoked by bending, lifting. Pain is alleviated by PT x 6 wks which ended in 2018, physician guided home exercises 4 times weekly since 2019 (lumbar and hips), medications, heat, repositioning and rest . Interventional procedures include Apr [address] Trauma, R TFESI L5-S1 x1, R Greater Trochanteric Injection x1 Medication s include Aleve, ASA REVIEW OF ORGAN SYSTEMS: CONSTITUTIONAL: No fevers or chills. No recent weight loss. NEUROLOGICAL: + numbness and tingling along the distal extremities. No seizure disorders or headaches. MUSCULOSKELETAL: + pain PSYCHIATRIC: Denies current depression or suicidal thoughts. Physical Examinations : Constitutional : Cooperative , not in acute distress . Neurologic : Cranial nerve II to XII intact. No focal neurological deficits. Psychiatric : alert & oriented x 3. Matching mood & appropriate affect. Judgment & insight intact. Musculoskeletal : Cervical Spine Motor strength in the deltoid and biceps: Normal right side. Normal Left side Motor strength biceps and the wrist extensors: Normal right side . Normal left side Motor strength in the triceps muscle: Normal right side. Normal left side Deep tendon reflexes: Normal at the biceps. Normal at Brachioradialis. Normal at triceps Vertebral body tenderness to deep palpation over Cervical facet loading test: positive bilaterally Spurling test: positive bilaterally Neck distraction test: positive bilaterally Curtis sign: positive bilaterally Lumbar spine +R Trendelenburg Motor strength lower extremities ,thigh and legs 5/5 Right side , 5/5 Left side Deep tendon reflexes : Normal Knee Jerk. Normal Ankle Jerk Vertebral body tenderness over L5 Baldwin Test positive R L5-S1 Lumbar facet Loading Test: positive Right / positive Left Range of motion of the lumbar spine Flexion 30 degrees, extension 10 degrees Straight Leg Raise test: Left/ Right positive at degrees Hiram test: positive right / positive left. Severe tenderness over the Sacroiliac joint on the Right / Left sides Gaenslen test: positive bilaterally Seated flexion test: positive bilaterally. Sacral spine : Severe tenderness over the Sacroiliac joint: right side / left side Range of motion: Flexion of the lumbar spine <60 degrees Range of motion: Extension of the lumbar spine <20 degrees Gaenslen's Test positive Hiram test: positive right side / left side Thigh Thrust Test Sacral Thrust Test Imaging: MRI non contrast of the lumbar spine from reviewed Assessment/ Plan : R Hip DJD, L3-L5 mild spinal stenosis, Lumbar radiculopathy, Cervical Fusion w Titanium Plate Recommendation of R Greater Trochanteric Injection #2. Risks, benefits of procedure discussed and patient verbalized understanding. Admits to anti- coagulant use or medical history of diabetes. Protocol for discontinuation/ continuation of medications vianca procedure discussed. All questions answered. I have spent greater than 30 minutes on patient care today. Dr Mendoza was available by phone for the evaluation of this patient. The time was used to review the medical records including relevant urine studies and Prescription history (MAPs), review of the available imaging, evaluation and examination of the patient, coordination of care with the medical staff and if applicable referring physicians, as well as creation of the medical record PQRS Narrative: Smoking Status Former smoker Hx Alcohol Use (MH) No Home Medications: Ambulatory Orders Aspirin [Adult Low Dose Aspirin EC] 81 mg PO DAILY 12/28/17 Omeprazole [PriLOSEC] 20 mg PO DAILY 12/28/17 metFORMIN HCL [Glucophage] 1,000 mg PO BID 12/28/17 Atorvastatin Calcium [Lipitor] 40 mg PO DAILY 06/02/21 lisinopriL [Prinivil] 10 mg PO BID 06/02/21 diazePAM [Valium] 5 mg PO DAILY PRN 1 Days #2 tab 03/29/24 Chlorthalidone [Hygroton] 25 mg PO HS 04/07/24 Cholecalciferol [Vitamin D3 (25 Mcg = 1000 Iu)] 25 mcg PO DAILY 04/07/24 Cyanocobalamin [Vitamin B-12] 500 mcg PO DAILY 04/07/24 Quercetin 500 mg PO DAILY 04/07/24 Sildenafil [Revatio] 1 tab PO DAILY PRN 04/07/24 Zinc Gluconate [Zinc] 50 mg PO DAILY 04/07/24 Controlled Substance Measures - Controlled Substance Measures Is patient prescribed a controlled substance at discharge?: No
== END ==
LOC: PNWHC3 08:28
PROVIDERS: ATTEND Specialist
CPT/HCPCS: 99211

== ENCOUNTER → 2024-08-08 | Day surgery (SDC) | payer BC ==
[~2024-08-08] MED LIST changes: +ROPIVACAINE 5MG/ML 20ML VIAL ONE; +methylPREDNISolone ACETATE 40 MG/ML 1 ML VIAL ONE
[2024-08-08 08:37] VITALS: TEMP 97.2
[2024-08-08 08:38] LABS: Glucose,Whole Blood 140 mg/dL (70-110)
--- NOTE | 2024-08-08 09:33 | P.PCN ---
Date of Procedure: 08/08/24 Procedure(s) Performed: Pre- and Post-operative Diagnosis: Right-sided Trochanteric Bursitis Procedure: Right Greater Trochanteric Bursa injection under fluoroscopic guidance Anesthesia: Local: 0.5 % Ropivacaine 2 ml . Complications: none Indications for Procedure: Patient had a history of greater trochanteric bursitis. Tried conservative therapy with minimal response. Came here for intervention procedure. Procedure and Findings: The patient was seen and examined. The written informed consent was obtained after explaining the risks, benefits and alternatives of the procedure to the patient. Patient agreed to proceed for the procedure signed the informed consent. The patient was brought to the procedure room and was placed in supine position on the operating table. mentioned above and monitoring was done with noninvasive blood pressure cuff, EKG and pulse oximetry. The skin preparation was done with ChloraPrep 3, and draping was done in usual sterile fashion. Sterile technique was observed throughout the procedure. Using fluoroscope in the AP view, the greater trochanter was identified. The middle of the greater trochanter was targeted for needle placement. 2 ml of 0.5% Ropivacaine was injected with a 25 gauge needle to achieve adequate local anesthesia of the skin and subcutaneous tissue. then 22 gauge 3.5 inch needle was introduced and advanced into the target area under direct fluoroscopic guidance. A bony contact was felt and the needle was withdrawn for about two millimeters. A negative aspiration was confirmed. then total of 5ml solution containing depo-medrol 40 mg and 4 ml of 0.5% preservative-free ropivacaine was injected slowly. The needle was removed intact, area was cleaned and bandage was applied. The patient tolerated the procedure very well. Additional comments: None Disposition : The patient was transferred to the recovery room and remained stable until discharged home. The patient was given detailed discharge instructions for infection, bleeding, increased pain at the injection site, and was advised to seek immediate medical attention should significant side effects develop. Patient was routinely examined by RN before discharging home. The patient will be followed up with [facility] within 3 weeks.
--- NOTE | 2024-08-08 09:41 | FL ---
Fluoroscopy History: PAIN Fluoro - 6.7s, DAP - 0.07738 mGym2 ARM, [place] [facility], , 08/08/2024 9:39 AM
[2024-08-08 10:01] VITALS: BP 130/82; PULSE 79; RESP 14
== END ==
LOC: ORPAIN 08:10
PROVIDERS: ATTEND Specialist
DX: M70.61 Trochanteric bursitis, right hip (principal)
CPT/HCPCS: 20610; J2795; J1010

== ENCOUNTER 2024-11-28 07:51 | Day surgery (SDC) | payer BC ==
[2024-11-24 12:25] VITALS: BMI 33.0
[~2024-11-28 07:51] MED LIST changes: -ROPIVACAINE 5MG/ML 20ML VIAL ONE; -methylPREDNISolone ACETATE 40 MG/ML 1 ML VIAL ONE
[2024-11-28 08:34] VITALS: TEMP 97.8
[2024-11-28 08:35] LABS: Glucose,Whole Blood 131 mg/dL (70-110)
[2024-11-28] MEDS ORDERED: ROPIVACAINE 5MG/ML 20ML VIAL ONE (09:15)
[2024-11-28] MEDS ORDERED: methylPREDNISolone ACETATE 40 MG/ML 1 ML VIAL ONE (09:15)
--- NOTE | 2024-11-28 09:20 | P.PCN ---
Description of Procedure: Preprocedure diagnosis. Myofascial pain. Myofascial trigger point. Postprocedure diagnosis. As above. Procedure done. Myofascial trigger point injection with local anesthetics and steroid at 2 points. Anesthesia. Local anesthetic infiltration. In the OR continuous pulse ox, EKG, blood pressure, and verbal communication was maintained with the patient. Blood loss. None. Indication. Discussed with the patient procedure, alternatives and possible complications which may include infection, bleeding, nerve damage, aggravation of pain. Patient understands and all questions were answered. Procedure note. After getting consent patient in the procedure area. Most tender points were identified and marked. A 25-gauge needle attached to syringe was introduced at the trigger points and after negative aspiration 5 mL solution are injected at each trigger point. I injected 2 trigger points in right lumber paraspinal muscles. Total solution consists of 10 ml 0.5%Ropivacaine mixed with 40 mg Depomedrol. Disposition. Patient tolerated the procedure well. No complication. Discharged home in stable condition.
[2024-11-28 09:43] VITALS: BP 169/75; PULSE 71; RESP 18
== END 2024-11-28 09:45 ==
LOC: ORPAIN 07:51
PROVIDERS: ATTEND Pain Medicine Interventional Pain Medicine
DX: M79.18 Myalgia, other site (principal)
CPT/HCPCS: 20552; J2795; J1010; 20553

== ENCOUNTER → 2024-12-14 | Outpatient (CLI) | payer BC ==
[2024-12-14 11:36] VITALS: BP 170/84; PULSE 75; RESP 16; TEMP 96.9
--- NOTE | 2024-12-14 14:22 | P.PAINPG ---
PQRS Measure Charge Sheet Comment: HISTORY OF PRESENT ILLNESS: A 69 yr old male w at side presents today w severe and chronic LBP> 3 mo secondary to L2-L5 radiculopathy, spondylosis and facet arthropathy without myelopathy for evaluation s/p BL TPIs L2-S1 #1. Pt states he experienced 0 % pain relief s/p procedure. Pt states pain level is provoked at 8 /10 in intensity, intermittent, localized in the R lower lumbar spine, predominantly axial, sharp in character w occasional shooting pain towards the R hip. Pain is provoked by bending, lifting. Pain is alleviated by PT x 6 wks which ended in 2018, physician guided home exercises 4 times weekly since 2019 (lumbar and hips), medications, heat, repositioning and rest . Interventional procedures include Apr [address], R TFESI L5-S1 x1, R Greater Trochanteric Injection x2, BL TPIs L2-S1 x1 (12/12) Medication s include Aleve, ASA REVIEW OF ORGAN SYSTEMS: CONSTITUTIONAL: No fevers or chills. No recent weight loss. NEUROLOGICAL: + numbness and tingling along the distal extremities. No seizure disorders or headaches. MUSCULOSKELETAL: + pain PSYCHIATRIC: Denies current depression or suicidal thoughts. Physical Examinations : Constitutional : Cooperative , not in acute distress . Neurologic : Cranial nerve II to XII intact. No focal neurological deficits. Psychiatric : alert & oriented x 3. Matching mood & appropriate affect. Judgment & insight intact. Musculoskeletal : Cervical Spine Motor strength in the deltoid and biceps: Normal right side. Normal Left side Motor strength biceps and the wrist extensors: Normal right side . Normal left side Motor strength in the triceps muscle: Normal right side. Normal left side Deep tendon reflexes: Normal at the biceps. Normal at Brachioradialis. Normal at triceps Vertebral body tenderness to deep palpation over Cervical facet loading test: positive bilaterally Spurling test: positive bilaterally Neck distraction test: positive bilaterally Curtis sign: positive bilaterally Lumbar spine +R Trendelenburg Motor strength lower extremities ,thigh and legs 5/5 Right side , 5/5 Left side Deep tendon reflexes : Normal Knee Jerk. Normal Ankle Jerk Vertebral body tenderness over L5 Baldwin Test positive R L4-L5/ L5-S1 Lumbar facet Loading Test: positive Right / positive Left L4-L5, L5-S1 Range of motion of the lumbar spine Flexion 30 degrees, extension 10 degrees Straight Leg Raise test: Left/ Right positive at degrees Hiram test: positive right / positive left. Severe tenderness over the Sacroiliac joint on the Right / Left sides Gaenslen test: positive bilaterally Seated flexion test: positive bilaterally. Sacral spine : Severe tenderness over the Sacroiliac joint: right side / left side Range of motion: Flexion of the lumbar spine <60 degrees Range of motion: Extension of the lumbar spine <20 degrees Gaenslen's Test positive Hiram test: positive right side / left side Thigh Thrust Test Sacral Thrust Test Imaging: MRI non contrast of the lumbar spine from 02/03/24 reviewed Assessment/ Plan : R Hip DJD, L3-L5 mild spinal stenosis, L2-L5 radiculopathy, Cervical Fusion w Titanium Plate Recommendation of BL MBB L4-L5/ L5-S1 #1 and medication management. Risks, benefits of procedure discussed and pt verbalized understanding. Minimal anesthesia including Fentanyl and Versed if clinically indicated. Opiate/ gerardo cotic agreement signed 11/02/24. Tylenol #3 #60 w 1 RF. Use, side effects, adverse reactions, safe storage discussed. Risks, benefits of procedure discussed and patient verbalized understanding. Admits to anti- coagulant use or medical history of diabetes. Protocol for discontinuation/ continuation of medications vianca procedure discussed. All questions answered. I have spent greater than 30 minutes on patient care today. Dr Mendoza was available by phone for the evaluation of this patient. The time was used to review the medical records including relevant urine studies and Prescription history (MAPs), review of the available imaging, evaluation and examination of the patient, coordination of care with the medical staff and if applicable referring physicians, as well as creation of the medical record PQRS Narrative: Smoking Status Former smoker Hx Alcohol Use (MH) No Home Medications: Ambulatory Orders Aspirin [Adult Low Dose Aspirin EC] 81 mg PO DAILY 12/28/17 Omeprazole [PriLOSEC] 20 mg PO DAILY 12/28/17 metFORMIN HCL [Glucophage] 500 mg PO BID 12/28/17 Atorvastatin Calcium [Lipitor] 40 mg PO DAILY 06/02/21 lisinopriL [Prinivil] 10 mg PO BID 06/02/21 Cholecalciferol [Vitamin D3 (25 Mcg = 1000 Iu)] 25 mcg PO DAILY 04/07/24 Cyanocobalamin [Vitamin B-12] 3,000 mcg PO DAILY 04/07/24 Quercetin 500 mg PO DAILY 04/07/24 Zinc Gluconate [Zinc] 50 mg PO DAILY 04/07/24 Dulaglutide [Trulicity] 1.5 mg SQ DAILY 08/08/24 Controlled Substance Measures - Controlled Substance Measures Is patient prescribed a controlled substance at discharge?: No
== END ==
LOC: PNWHC3 09:01
PROVIDERS: ATTEND Specialist
DX: M16.11 Unilateral primary osteoarthritis, right hip (principal); M47.26 Other spondylosis with radiculopathy, lumbar region; M48.061 Spinal stenosis, lumbar region without neurogenic claudication; M43.22 Fusion of spine, cervical region; Z87.891 Personal history of nicotine dependence
CPT/HCPCS: 99211

== ENCOUNTER → 2025-01-05 | Day surgery (SDC) | payer BC ==
[~2025-01-05] MED LIST changes: -LACTATED RINGERS 1,000 ML IV SCH; +MIDAZOLAM 2 MG/2 ML VIAL ONE; +ROPIVACAINE 5MG/ML 20ML VIAL ONE; +fentaNYL (PF) 50 MCG/ML 2 ML AMP ONE; +hydrALAZINE HCL 20 MG/ML 1 ML VIAL ONE
[2025-01-05 10:24] VITALS: TEMP 96.8
[2025-01-05 10:38] LABS: Glucose,Whole Blood 125 mg/dL (70-110)
[2025-01-05] MEDS: IV FLUID CONTINUATION 1,000 ML IV ONE ×3 (10:44→12:26)
[2025-01-05] MEDS: LACTATED RINGERS 1,000 ML IV SCH (10:46)
--- NOTE | 2025-01-05 12:02 | P.PCN ---
Description of Procedure: Preprocedure diagnosis. 1. Lumbar spondylosis with facet joint arthropathy without myelopathy. 2. Lumbar degenerative disc disease. Postprocedure diagnosis. As above. Procedure done. Bilateral diagnostic block with local anesthetics at L3, L4, L5 medial branch to target the facet joint L4- 5 and L5-S1 with fluoroscopic guidan ce (fluoroscopy images are available in the radiology department) . Anesthesia. Moderate sedation with intravenous Versed 3 mg and fentanyl 100and local infiltration with local anesthetics. In OR, continuous pulse ox, EKG, blood pressure and verbal communication was maintained. Sedation time-[id number] end 1152 . Blood loss. Minimal. Indication. The patient has low back pain secondary to lumbar facet joint arthropathy. Discussed the procedure and alternative and complications which includes infection, bleeding, nerve damage, paralysis ,aggravation of pain. Patient understands and all questions were answered. Patient iunderstands that if any pain relief occurs it will last for a few hours to a few days maximum. Procedure description. After getting consent patient was taken in the OR in prone position. Back prepped with chlorhexidine and draped in sterile fashion. After injecting 5 mL of plain 1% lidocaine subcutaneously, a 22-gauge spinal needle was introduced under tunnel vision of the fluoroscope at the junction of the superior articular process with RIGHT ala of the sacrum. With slight oblique fluoroscope, after injecting 5 mL of plain 1% lidocaine subcutaneously, a 22-gauge spinal needle was introduced under tunnel vision of the fluoroscope at the junction of the superior articular process with RIGHT L5 transverse process, junction of the superior articular process with the RIGHT L4 transverse process. Negative CSF, negative blood, negative paresthesia. After needle position confirmation by AP and crosstable lateral view, after negative aspiration, half milliliters of solution were injected at each point. Total 1- 1/2 mL of solution was injected on the right side which consists of 0.5% ropivacaine. In exactly same way, LEFT sided injections were done at the following 3 points. Junction of the superior articular process with left ala of the sacrum, junction of the superior articular process with the left L5 transverse process, junction of the superior articular process with left L4 transverse process using 0.5 mL of solution at each point. Total 1-1/2 mL of solution was injected on the left side which consists of 0.5% ropivacaine . Spinal needles were taken out and bandages were applied. Disposition. Patient tolerated the procedure well. No complication. Discharged home in stable condition
[2025-01-05 12:03] VITALS: RESP 16
--- NOTE | 2025-01-05 12:06 | FL ---
EXAMINATION TYPE: FL guided pain mgmt statistic Intraoperative/procedural fluoroscopic services were provided. CLINICAL INDICATION:Male, 69 years old with history of Aleksandr Lumbar Facet; , [facility] FINDINGS: Fluoroscopic images for bilateral facet joint injection. No radiographic evidence for complication. Total fluoroscopy time is 50.5 seconds. DAP: [id number] mGym2 Please see the operative/procedural note for further details. [facility], , 01/05/2025 12:04 PM
[2025-01-05 12:07] LABS: Glucose,Whole Blood 129 mg/dL (70-110)
[2025-01-05 12:24] VITALS: BP 132/76; PULSE 75
== END ==
LOC: ORPAIN 08:38
PROVIDERS: ATTEND Pain Medicine Interventional Pain Medicine
DX: M47.816 Spondylosis without myelopathy or radiculopathy, lumbar region (principal); M51.369 Other intervertebral disc degeneration, lumbar region without mention of lumbar back pain or lower extremity pain
CPT/HCPCS: 64493; 64494; J2250; J0360; J3010; J2795; 99152

== ENCOUNTER → 2025-02-01 | Outpatient (CLI) | payer BC ==
[2025-02-01 09:34] VITALS: BP 170/93; PULSE 76; RESP 16; TEMP 97.1
--- NOTE | 2025-02-01 15:40 | P.PAINPG ---
Objective - Vital Signs Vital signs: Intake & Output 01/31/25 02/01/25 02/01/25 18:59 06:59 18:59 Weight 104.326 kg PQRS Measure Charge Sheet Comment: HISTORY OF PRESENT ILLNESS: A 69 yr old male w at side presents today w severe and chronic LBP> 3 mo secondary to L2-L5 radiculopathy, spondylosis and facet arthropathy without myelopathy for evaluation s/p BL MBB L4-L5/ L5-S1 #1. Pt states he experienced 90 % pain relief x 6 hrs s/p procedure. Pt states pain level is provoked at 8 /10 in intensity, intermittent, localized in the R lower lumbar spine, predominantly axial, sharp in character w occasional shooting pain towards the R hip. Pain is provoked by bending, lifting. Pain is alleviated by PT x 6 wks which ended in 2018, physician guided home exercises 4 times weekly since 2019 (lumbar and hips), medications, heat, repositioning and rest . Interventional procedures include Apr [address] Trauma, R TFESI L5-S1 x1, R Greater Trochanteric Injection x2, BL TPIs L2-S1 x1 (12/12), BL MBB L3-L5 x1 Medication s include Aleve, ASA REVIEW OF ORGAN SYSTEMS: CONSTITUTIONAL: No fevers or chills. No recent weight loss. NEUROLOGICAL: + numbness and tingling along the distal extremities. No seizure disorders or headaches. MUSCULOSKELETAL: + pain PSYCHIATRIC: Denies current depression or suicidal thoughts. Physical Examinations : Constitutional : Cooperative , not in acute distress . Neurologic : Cranial nerve II to XII intact. No focal neurological deficits. Psychiatric : alert & oriented x 3. Matching mood & appropriate affect. Judgment & insight intact. Musculoskeletal : Cervical Spine Motor strength in the deltoid and biceps: Normal right side. Normal Left side Motor strength biceps and the wrist extensors: Normal right side . Normal left side Motor strength in the triceps muscle: Normal right side. Normal left side Deep tendon reflexes: Normal at the biceps. Normal at Brachioradialis. Normal at triceps Vertebral body tenderness to deep palpation over Cervical facet loading test: positive bilaterally Spurling test: positive bilaterally Neck distraction test: positive bilaterally Curtis sign: positive bilaterally Lumbar spine +R Trendelenburg Motor strength lower extremities ,thigh and legs 5/5 Right side , 5/5 Left side Deep tendon reflexes : Normal Knee Jerk. Normal Ankle Jerk Vertebral body tenderness over L5 Baldwin Test positive R L4-L5/ L5-S1 Lumbar facet Loading Test: positive Right / positive Left L4-L5, L5-S1 Range of motion of the lumbar spine Flexion 30 degrees, extension 10 degrees Straight Leg Raise test: Left/ Right positive at degrees Hiram test: positive right / positive left. Severe tenderness over the Sacroiliac joint on the Right / Left sides Gaenslen test: positive bilaterally Seated flexion test: positive bilaterally. Sacral spine : Severe tenderness over the Sacroiliac joint: right side / left side Range of motion: Flexion of the lumbar spine <60 degrees Range of motion: Extension of the lumbar spine <20 degrees Gaenslen's Test positive Hiram test: positive right side / left side Thigh Thrust Test Sacral Thrust Test Imaging: MRI non contrast of the lumbar spine from 02/03/24 reviewed Assessment/ Plan : R Hip DJD, L3-L5 mild spinal stenosis, L2-L5 radiculopathy, Cervical Fusion w Titanium Plate Recommendation of BL MBB L4-L5/ L5-S1 #2 and medication management. Risks, benefits of procedure discussed and pt verbalized understanding. Minimal anesthesia including Fentanyl and Versed if clinically indicated. Opiate/ narcotic agreement signed 11/02/24. Ample supply of Tylenol #3 #60 w 1 RF. Use, side effects, adverse reactions, safe storage discussed. Risks, benefits of procedure discussed and patient verbalized understanding. Admits to anti- coagulant use or medical history of diabetes. Protocol for discontinuation/ continuation of medications vianca procedure discussed. All questions answered. I have spent greater than 30 minutes on patient care today. Dr Mendoza was available by phone for the evaluation of this patient. The time was used to review the medical records including relevant urine studies and Prescription history (MAPs), review of the available imaging, evaluation and examination of the patient, coordination of care with the medical staff and if applicable referring physicians, as well as creation of the medical record - Pain Location Bilateral Lower Back Non-Pharmacological Interventions: Heat, Inactivity, Position/Reposition, Relaxation Technique Pharmacological Interventions: Block, Epidural, PRN Medication PQRS Narrative: Smoking Status Former smoker Hx Alcohol Use (MH) No Home Medications: Ambulatory Orders Aspirin [Adult Low Dose Aspirin EC] 81 mg PO DAILY 12/28/17 Omeprazole [PriLOSEC] 20 mg PO DAILY 12/28/17 metFORMIN HCL [Glucophage] 500 mg PO BID 12/28/17 Atorvastatin Calcium [Lipitor] 40 mg PO DAILY 06/02/21 lisinopriL [Prinivil] 10 mg PO BID 06/02/21 Cholecalciferol [Vitamin D3 (25 Mcg = 1000 Iu)] 25 mcg PO DAILY 04/07/24 Cyanocobalamin [Vitamin B-12] 3,000 mcg PO DAILY 04/07/24 Quercetin 500 mg PO DAILY 04/07/24 Zinc Gluconate [Zinc] 50 mg PO DAILY 04/07/24 Dulaglutide [Trulicity] 1.5 mg SQ MO 08/08/24 Controlled Substance Measures - Controlled Substance Measures Is patient prescribed a controlled substance at discharge?: No
== END ==
LOC: PNWHC3 09:21
PROVIDERS: ATTEND Specialist
DX: M47.26 Other spondylosis with radiculopathy, lumbar region (principal); M16.11 Unilateral primary osteoarthritis, right hip; M48.061 Spinal stenosis, lumbar region without neurogenic claudication; M43.22 Fusion of spine, cervical region; Z87.891 Personal history of nicotine dependence
CPT/HCPCS: 99211

== ENCOUNTER 2025-03-01 12:00 | Day surgery (SDC) | payer BC ==
[2025-03-01] MEDS: IV FLUID CONTINUATION 1,000 ML IV ONE (12:22)
[2025-03-01 12:34] VITALS: TEMP 96.7
[2025-03-01 12:47] LABS: Glucose,Whole Blood 103 mg/dL (70-110)
[2025-03-01] MEDS: LACTATED RINGERS 1,000 ML BAG IV STA (12:49)
[2025-03-01] MEDS ORDERED: ROPIVACAINE 5 MG/ML 30 ML VIAL ONE (13:34)
[2025-03-01] MEDS ORDERED: MIDAZOLAM 2 MG/2 ML VIAL ONE (13:34)
[2025-03-01] MEDS ORDERED: fentaNYL (PF) 50 MCG/ML 2 ML AMP ONE (13:34)
--- NOTE | 2025-03-01 13:48 | P.PCN ---
Description of Procedure: Preprocedure diagnosis. 1. Lumbar spondylosis with facet joint arthropathy without myelopathy. 2. Lumbar degenerative disc disease. Postprocedure diagnosis. As above. Procedure done. Bilateral diagnostic block with local anesthetics at L3, L4, L5 medial branch to target the facet joint L4- 5 and L5-S1 with fluoroscopic guidan ce (fluoroscopy images are available in the radiology department) . Anesthesia. Moderate sedation with intravenous Versed 2 mg and fentanyl microgram and local infiltration with local anesthetics. In OR, continuous pulse ox, EKG, blood pressure and verbal communication was maintained. Sedation time-start end . Blood loss. Minimal. Indication. The patient has low back pain secondary to lumbar facet joint arthropathy. Discussed the procedure and alternative and complications which includes infection, bleeding, nerve damage, paralysis ,aggravation of pain. Patient understands and all questions were answered. Patient iunderstands that if any pain relief occurs it will last for a few hours to a few days maximum. Procedure description. After getting consent patient was taken in the OR in prone position. Back prepped with chlorhexidine and draped in sterile fashion. After injecting 5 mL of plain 1% lidocaine subcutaneously, a 22-gauge spinal needle was introduced under tunnel vision of the fluoroscope at the junction of the superior articular process with RIGHT ala of the sacrum. With slight oblique fluoroscope, after injecting 5 mL of plain 1% lidocaine subcutaneously, a 22-gauge spinal needle was introduced under tunnel vision of the fluoroscope at the junction of the superior articular process with RIGHT L5 transverse process, junction of the superior articular process with the RIGHT L4 transverse process. Negative CSF, negative blood, negative paresthesia. After needle position confirmation by AP and crosstable lateral view, after negative aspiration, half milliliters of solution were injected at each point. Total 1- 1/2 mL of solution was injected on the right side which consists of 0.5% ropivacaine. In exactly same way, LEFT sided injections were done at the following 3 points. Junction of the superior articular process with left ala of the sacrum, junction of the superior articular process with the left L5 transverse process, junction of the superior articular process with left L4 transverse process using 0.5 mL of solution at each point. Total 1-1/2 mL of solution was injected on the left side which consists of 0.5% ropivacaine . Spinal needles were taken out and bandages were applied. Disposition. Patient tolerated the procedure well. No complication. Discharged home in stable condition
[2025-03-01] MEDS: LACTATED RINGERS 1,000 ML IV ONE (13:55)
[2025-03-01 14:06] LABS: Glucose,Whole Blood 103 mg/dL (70-110)
[2025-03-01 14:16] VITALS: BP 134/90; PULSE 70; RESP 18
--- NOTE | 2025-03-01 14:16 | FL ---
EXAMINATION TYPE: FL guided pain mgmt statistic DATE OF EXAM: 03/01/2025 1:52 PM COMPARISON: Pre Operative Images if available both CT/MRI or plain film CLINICAL INDICATION: Male, 69 years old with history of JUAN LUM FB; TECHNIQUE: FL guided pain mgmt statistic, multiple fluoroscopic images provided for procedure. DAP: 0.12349 mGym2 Gycm2 uGym2 cGycm2 or equivalent. FINDINGS: Fluoroscopic images during injection for pain management demonstrate multilevel degeneration changes throughout the spine. No evidence for fracture. No acute process identified. IMPRESSION: 1. No evidence for intraoperative complication. 2. Please see the operative/procedural note for further details. [facility], , 03/01/2025 2:13 PM
== END 2025-03-01 14:26 | disposition home or self-care (01) ==
LOC: ORPAIN 12:00
PROVIDERS: ATTEND Pain Medicine Interventional Pain Medicine
DX: M47.816 Spondylosis without myelopathy or radiculopathy, lumbar region (principal); M51.369 Other intervertebral disc degeneration, lumbar region without mention of lumbar back pain or lower extremity pain
CPT/HCPCS: 64493; 64494; J2250; J3010; J2795; 99152

== ENCOUNTER → 2025-03-15 | Outpatient (CLI) | payer BC ==
[2025-03-15 08:30] VITALS: BP 146/80; PULSE 69; RESP 18; TEMP 97.8
--- NOTE | 2025-03-15 14:54 | P.PAINPG ---
PQRS Measure Charge Sheet Comment: HISTORY OF PRESENT ILLNESS: A 69 yr old male w at side presents today w severe and chronic LBP> 3 mo secondary to L2-L5 radiculopathy, spondylosis and facet arthropathy without myelopathy for evaluation s/p BL MBB L4-L5/ L5-S1 #2. Pt states he experienced 100 % pain relief x 72 hrs s/p procedure. Pt states pain level is provoked at 6 /10 in intensity, intermittent, localized in the lower lumbar spine, predominantly axial, sharp in character without shooting pain. Pain is provoked by standing/ walking for periods > 15 min. Pain is alleviated by PT x 6 wks which ended in 2018, physician guided home exercises 4 times weekly since 2019 (lumbar and hips), medications, heat, repositioning and rest . Interventional procedures include Apr [address]uma, R TFESI L5-S1 x1, R Greater Trochanteric Injection x2, BL TPIs L2-S1 x1 (12/12), BL MBB L3-L5 x2 Medication s include Aleve, ASA REVIEW OF ORGAN SYSTEMS: CONSTITUTIONAL: No fevers or chills. No recent weight loss. NEUROLOGICAL: + numbness and tingling along the distal extremities. No seizure disorders or headaches. MUSCULOSKELETAL: + pain PSYCHIATRIC: Denies current depression or suicidal thoughts. Physical Examinations : Constitutional : Cooperative , not in acute distress . Neurologic : Cranial nerve II to XII intact. No focal neurological deficits. Psychiatric : alert & oriented x 3. Matching mood & appropriate affect. Judgment & insight intact. Musculoskeletal : Cervical Spine Motor strength in the deltoid and biceps: Normal right side. Normal Left side Motor strength biceps and the wrist extensors: Normal right side . Normal left side Motor strength in the triceps muscle: Normal right side. Normal left side Deep tendon reflexes: Normal at the biceps. Normal at Brachioradialis. Normal at triceps Vertebral body tenderness to deep palpation over Cervical facet loading test: positive bilaterally Spurling test: positive bilaterally Neck distraction test: positive bilaterally Curtis sign: positive bilaterally Lumbar spine +R Trendelenburg Motor strength lower extremities ,thigh and legs 5/5 Right side , 5/5 Left side Deep tendon reflexes : Normal Knee Jerk. Normal Ankle Jerk Vertebral body tenderness over L5 Baldwin Test positive R L4-L5/ L5-S1 Lumbar facet Loading Test: positive Right / positive Left L4-L5, L5-S1 Range of motion of the lumbar spine Flexion 30 degrees, extension 10 degrees Straight Leg Raise test: Left/ Right positive at degrees Hiram test: positive right / positive left. Severe tenderness over the Sacroiliac joint on the Right / Left sides Gaenslen test: positive bilaterally Seated flexion test: positive bilaterally. Sacral spine : Severe tenderness over the Sacroiliac joint: right side / left side Range of motion: Flexion of the lumbar spine <60 degrees Range of motion: Extension of the lumbar spine <20 degrees Gaenslen's Test positive Hiram test: positive right side / left side Thigh Thrust Test Sacral Thrust Test Imaging: MRI non contrast of the lumbar spine from 02/03/24 reviewed Assessment/ Plan : R Hip DJD, L3-L5 mild spinal stenosis, L2-L5 radiculopathy, Cervical Fusion w Titanium Plate Recommendation of BL RFA L4-L5/ L5-S1 . Risks, benefits of procedure discussed and pt verbalized understanding. Minimal anesthesia including Fentanyl and Versed if clinically indicated. Opiate/ narcotic agreement signed 11/02/24. Ample supply of Tylenol #3 #60 w 1 RF. Use, side effects, adverse reactions, safe storage discussed. Admits to anti- coagulant use or medical history of diabetes. Protocol for discontinuation/ continuation of medications vianca procedure discussed. All questions answered. I have spent greater than 30 minutes on patient care today. Dr Mendoza was available by phone for the evaluation of this patient. The time was used to review the medical records including relevant urine studies and Prescription history (MAPs), review of the available imaging, evaluation and examination of the patient, coordination of care with the medical staff and if applicable referring physicians, as well as creation of the medical record - Pain Location Right Lower Back Non-Pharmacological Interventions: Heat, Home Exercise, Massage, Physical Therapy Pharmacological Interventions: Block, PRN Medication, Topical Medication PQRS Narrative: Smoking Status Former smoker Hx Alcohol Use (MH) No Home Medications: Ambulatory Orders Aspirin [Adult Low Dose Aspirin EC] 81 mg PO DAILY 12/28/17 Omeprazole [PriLOSEC] 20 mg PO DAILY 12/28/17 metFORMIN HCL [Glucophage] 500 mg PO BID 12/28/17 Atorvastatin Calcium [Lipitor] 40 mg PO DAILY 06/02/21 lisinopriL [Prinivil] 10 mg PO BID 06/02/21 Cholecalciferol [Vitamin D3 (25 Mcg = 1000 Iu)] 25 mcg PO DAILY 04/07/24 Cyanocobalamin [Vitamin B-12] 3,000 mcg PO DAILY 04/07/24 Quercetin 500 mg PO DAILY 04/07/24 Zinc Gluconate [Zinc] 50 mg PO DAILY 04/07/24 Dulaglutide [Trulicity] 1.5 mg SQ MO 08/08/24 Cyclobenzaprine [Flexeril] 10 mg PO TID PRN #15 tab 02/18/25 predniSONE 10 mg PO DIRECTED 02/22/25 Controlled Substance Measures - Controlled Substance Measures Is patient prescribed a controlled substance at discharge?: No
== END ==
LOC: PNWHC3 08:13
PROVIDERS: ATTEND Anesthesiology
DX: M16.11 Unilateral primary osteoarthritis, right hip (principal); M43.22 Fusion of spine, cervical region; M48.061 Spinal stenosis, lumbar region without neurogenic claudication; M47.26 Other spondylosis with radiculopathy, lumbar region; Z87.891 Personal history of nicotine dependence
CPT/HCPCS: 99211

== ENCOUNTER 2025-04-06 11:20 | Day surgery (SDC) | payer BC ==
[2025-04-06 12:19] VITALS: TEMP 97.4
[2025-04-06] MEDS: IV FLUID CONTINUATION 1,000 ML IV ONE ×2 (12:23→14:52)
[2025-04-06] MEDS: LACTATED RINGERS 1,000 ML IV SCH (12:26)
[2025-04-06 14:04] LABS: Glucose,Whole Blood 98 mg/dL (70-110)
[2025-04-06] MEDS ORDERED: MIDAZOLAM 2 MG/2 ML VIAL ONE (14:12)
[2025-04-06] MEDS ORDERED: fentaNYL (PF) 50 MCG/ML 2 ML AMP ONE (14:12)
[2025-04-06] MEDS ORDERED: ROPIVACAINE 5 MG/ML 30 ML VIAL ONE (14:12)
--- NOTE | 2025-04-06 14:53 | P.PCN ---
Description of Procedure: Preprocedure diagnosis. 1. Lumbar spondylosis with facet joint arthropathy without myelopathy. 2. Lumbar degenerative disc disease. Procedure diagnosis. 1. Lumbar spondylosis with facet joint arthropathy without myelopathy. Space 2. Lumbar degenerative disc disease. Procedure.Bilateral radiofrequency thermocoagulation L3, L4 and L5 medial branch, with fluoroscopic guidance (fluoroscopy images are available in the radiology department) (to Denervate the facet joint at bilateral L4- 5 and L5-S1 levels) Anesthesia. Moderate sedation with intravenous Versed 2 mg and fentanyl 200 g and local infiltration with Lidocaine. Continuous pulse OX,BP,EKG and verbal communication was maintained with patient. Time. Start 1412. Stop 1442. EBL minimal. Procedure indication. The patient with low back pain secondary to lumbar facet arthropathy who he had more than 50% relief of her pain with previous diagnostic lumbar medial branch block with local anesthetics.The patient was seen and identified in the preoperative area. Risks: Benefits, complications, including but not limited to risk of infection, bleeding, ALLERGIC reaction to the medications and no complete pain relief and alternatives were discussed with the patient, the patient admitted to proceed with the procedure and signed the consent. Procedure description/technique. Patient was taken to the OR and timeout was completed. The patient was placed in prone position on the procedure table. The lumbar area was prepped and draped in the usual sterile fashion. After injecting 5 ml of 1% Lidocaine subcutaneously,using AP and then oblique, lateral view of fluoroscopy, 18-gauge 100 mm radiofrequency cannula with a 10 mm active tip was advanced and guided by fluoroscopy at the junction of supirior articular process with RIGHT ala of the sacrum, transverse process of L4&L5. Each site then underwent positive sensory testing with 50 Hz and 0-1 V and negative motor testing at 2.5 Hz and 0-3 V with local stimulation but no radicular symptoms down the leg. Thereafter each sites underwent radiofrequency thermocoagulation at 80C for 90 seconds after injecting 1 mL of preservative- free 0.5% ropivacaine. Repeat radiofrequency ablation was done at each points after rotating the needle 180 with same setting. This same procedure was repeated twice on the LEFT side at the junction of superior articular process with ala of sacrum,transverse process of L4, L5 with the same settings after positive sensory,negative motor stimulation and inf iltration of 1.0 ml 5% Ropivacaine at each site . RF needles were taken out. At the end of the procedure the skin was cleansed and Band-Aids were applied. Disposition patient tolerated the procedure well. No complication. She was placed in supine position and transferred to the recovery area in stable condition for observation and was discharged home from recovery room after meeting discharge criteria. Discharge instructions given to the patient by the staff. The patient were examined prior to discharge the patient will schedule a follow-up in the clinic in 2-4 weeks.
--- NOTE | 2025-04-06 14:55 | FL ---
EXAMINATION TYPE: FL guided pain mgmt statistic DATE OF EXAM: 04/06/2025 FLUOROSCOPY RAD FREQ JUAN LUMBAR. 62.9 SECS FL. [id number] DAP. 4 images are submitted. [facility], , 04/06/2025 2:53 PM
[2025-04-06 15:29] VITALS: BP 160/93; PULSE 73; RESP 16
== END 2025-04-06 15:35 | disposition home or self-care (01) ==
LOC: ORPAIN 11:20
PROVIDERS: ATTEND Pain Medicine Interventional Pain Medicine
DX: M47.816 Spondylosis without myelopathy or radiculopathy, lumbar region (principal); M51.360 Other intervertebral disc degeneration, lumbar region with discogenic back pain only
CPT/HCPCS: 64635; 64636; J2250; J3010; J2795; 99152; 99153